=== PATIENT | female | born 1980 | race Hispanic/Latino ===

== ENCOUNTER 2020-09-09 05:31 | Inpatient (IN) | payer OTHER ==
[~2020-09-09] VITALS: Ht 160 cm; Wt 83.5 kg
[2020-09-09] MEDS ORDERED: CEFAZOLIN SODIUM 1 GM VIAL IVP PRN (06:00)
[2020-09-09] MEDS ORDERED: LACTATED RINGERS 1000ML 1,000 ML IV SCH (06:00)
[2020-09-09] MEDS ORDERED: CALDOLOR 800MG+NS 250ML 250 ML IV PRN (06:00)
[2020-09-09 06:38] VITALS: BP 102/59
[2020-09-09 06:49] LABS: HEMATOCRIT 33.5 % (36-48); MEAN CORPUSCULAR HEMOGLOBIN 28.6 pg (27.0-33.0); MEAN CORPUSCULAR HGB CONC 32.8 g/dL (32.0-36.0); MEAN CORPUSCULAR VOLUME 87.2 fL (79-99); RED BLOOD CELL COUNT(AUTO) 3.84 MIL/uL (4.00-5.50); RED CELL DISTRIBUTION WIDTH 13.8 % (11.0-15.5); WHITE BLOOD COUNT (AUTO) 7.4 K/uL (4.8-10.8)
[2020-09-09] MEDS ORDERED: DURAMORPH PF1 MG/ML 10ML AMP IV ONE (09:03)
[2020-09-09] MEDS ORDERED: OXYTOCIN 10 UNIT/1ML 10ML VIAL ONE (09:03)
[2020-09-09] MEDS ORDERED: FENTANYL CITRATE PF 50 MCG/1 ML 2ML VIAL ONE (09:04)
[2020-09-09] MEDS ORDERED: CEFAZOLIN SODIUM 1 GM VIAL IVP ONE (09:15)
[2020-09-09] MEDS ORDERED: ONDANSETRON HCL 4 MG/2 ML VIAL ONE (09:21)
[2020-09-09] MEDS ORDERED: EPHEDRINE SULFATE 50 MG/ML AMPULE ONE (09:37)
[2020-09-09] MEDS ORDERED: DiphenhydrAMINE HCL 50 MG/ML VIAL IVP PRN (10:45)
[2020-09-09] MEDS ORDERED: MEPERIDINE-PF 75 MG/ML SYG IM PRN (10:45)
[2020-09-09] MEDS ORDERED: EPHEDRINE SULFATE 50 MG/ML AMPULE IVP PRN (10:45)
[2020-09-09] MEDS ORDERED: KETOROLAC TROMETHAMINE 30MG/ML IV PRN (10:45)
[2020-09-09] MEDS ORDERED: NALOXONE HCL 0.4 MG/1 ML ML IVP PRN ×3 (10:45)
[2020-09-09] MEDS ORDERED: SODIUM CHLORIDE 0.9% 10 ML VIAL IVP PRN (10:45)
[2020-09-09] MEDS ORDERED: PROMETHAZINE HCL 25 MG/ML 1ML AMPULE IM PRN (10:45)
[2020-09-09] MEDS ORDERED: OXYTOCIN-LR 20 UNITS/1000 ML 1,000 ML IV PRN (10:45)
[2020-09-09 11:57] VITALS: BP 108/54
[2020-09-09] MEDS: ONDANSETRON HCL 4 MG/2 ML VIAL IVP PRN ×2 (12:12→16:32)
[2020-09-09] MEDS ORDERED: PREN-154 PO (12:24)
[2020-09-09] MEDS ORDERED: URSO300C4 PO (12:24)
[2020-09-09] MEDS ORDERED: HYDROCODONE/ACETAMINOPHEN 5/325 MG TAB PO PRN (12:30)
[2020-09-09] MEDS ORDERED: DIPH,PERTUSS(ACELL),TET VAC/PF 0.5 ML VIAL IM SCH (12:30)
[2020-09-09] MEDS ORDERED: LANOLIN 30GM OINTMENT TP PRN (12:30)
[2020-09-09] MEDS ORDERED: ACETAMINOPHEN EXTRA STRENGTH 500 MG TABLET PO PRN (12:30)
[2020-09-09] MEDS ORDERED: ACETAMINOPHEN-CODEINE 300/30MG TAB PO PRN (12:30)
[2020-09-09] MEDS ORDERED: BISACODYL 10 MG SUPP.RECT RC PRN (12:30)
[2020-09-09 15:59] VITALS: BP 98/58
[2020-09-09] MEDS: DEXTROSE 5 %-0.45 % NACL 1,000 ML IV PRN (16:33)
[2020-09-09] MEDS: CALDOLOR 800MG+NS 250ML 250 ML IV SCH (18:47)
[2020-09-09 19:24] VITALS: BP 104/71
[2020-09-09] MEDS: SIMETHICONE 80 MG TAB.CHEW PO PRN (21:26)
[2020-09-09] MEDS: DOCUSATE SODIUM 100 MG CAP PO SCH (21:26)
[2020-09-09] MEDS: LORATADINE 10 MG TABLET PO SCH (21:26)
[2020-09-09 23:59] VITALS: BP 91/57
[2020-09-10] MEDS: DEXTROSE 5 %-0.45 % NACL 1,000 ML IV PRN (01:00)
[2020-09-10] MEDS: CALDOLOR 800MG+NS 250ML 250 ML IV SCH (03:03)
[2020-09-10 03:20] VITALS: BP 93/62
[2020-09-10 07:37] VITALS: BP 97/68
[2020-09-10 08:15] LABS: HEPATITIS Bs ANTIGEN SCREEN P Negative (Negative)
[2020-09-10] MEDS ORDERED: LIDOCAINE 5% TOPICAL PATCH TP SCH (09:00)
[2020-09-10] MEDS: DOCUSATE SODIUM 100 MG CAP PO SCH (09:14)
[2020-09-10] MEDS: SIMETHICONE 80 MG TAB.CHEW PO PRN (09:14)
[2020-09-10] MEDS: LORATADINE 10 MG TABLET PO SCH (09:25)
[2020-09-10] MEDS ORDERED: IBUPROFEN 800 MG TAB PO SCH (10:45)
[2020-09-10 11:11] VITALS: BP 111/60
[2020-09-10 16:42] VITALS: BP 113/69
== END 2020-09-10 17:40 | disposition home or self-care (01) | DRG 786 ==
LOC: EDH 05:31 → OBSVTOIN 05:32 → LDH 05:32 → WSH 11:55
PROVIDERS: ADMIT Obstetrics & Gynecology; ATTEND Obstetrics & Gynecology
PROC: 3E0234Z Introduction of Serum, Toxoid and Vaccine into Muscle, Percutaneous Approach (ICD-10-PCS; 2020-09-09)
PROC: 10D00Z1 Extraction of Products of Conception, Low, Open Approach (ICD-10-PCS; principal; 2020-09-09 09:02)
DX: O34.211 Maternal care for low transverse scar from previous cesarean delivery (principal); K83.1 Obstruction of bile duct; O60.23X0 Term delivery with preterm labor, third trimester, not applicable or unspecified; O26.62 Liver and biliary tract disorders in childbirth; Z3A.37 37 weeks gestation of pregnancy; Z37.0 Single live birth; Z23 Encounter for immunization
CPT/HCPCS: 36415; 59510; 85027; 86592; 86850; 86900; 86901; 87340; 90715; A4344; G0378; J0690; J1741; J2274; J2405; J2590; J3010; J3490; J7120